=== PATIENT | male | born 2000 | race Caucasian/White ===

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

== ENCOUNTER 2021-10-07 11:02 | Day surgery (SDC) | payer BC, OTHER ==
[2021-10-06 11:09] VITALS: BMI 20.9
[~2021-10-07 11:02] MED LIST: ACETAMINOPHEN TAB 500 MG TAB PO PRN; DEXAMETHASONE SOD PHOSPHATE 4 MG/ML 1 ML VIAL IV ONE; HEPARIN SODIUM,PORCINE/PF 5,000 UNIT/0.5 ML SYRINGE SQ PRN; HYDROmorphone 0.5 MG/0.5 ML SYRINGE IVP PRN; LACTATED RINGERS 1,000 ML IV SCH; MIDAZOLAM 2 MG/2 ML VIAL IV PRN; ONDANSETRON 4 MG/2 ML VIAL IVP ONE; SCOPOLAMINE 1 MG/72 HR PATCH TRANSDERM ONE; metroNIDAZOLE-NS PMX 500 MG in SALINE 1 100ML.BAG IVPB PRN
--- NOTE | 2021-10-07 12:24 | P.GSHP ---
History of Present Illness H&P Date: 10/07/21 Chief Complaint: Pilonidal cyst 21-year-old male here for pilonidal cystectomy. Seen in the office a few months ago. Patient with 3 year history of pain and drainage at the skin opening along the pilonidal crease. Had a previous incision and drainage in the past. No surgical resection in the past however. Mild pain at times. Past Medical History Past Medical History: No Reported History History of Any Multi-Drug Resistant Organisms: None Reported Past Surgical History: No Surgical Hx Reported Past Anesthesia/Blood Transfusion Reactions: No Reported Reaction Additional Past Anesthesia/Blood Transfusion Reaction / Comment(s): Has never had anesthesia. Past Psychological History: No Psychological Hx Reported Smoking Status: Former smoker Past Alcohol Use History: Occasional Additional Past Alcohol Use History / Comment(s): Quit smoking 1 yr ago, "only smoked a couple times". Past Drug Use History: Marijuana Additional Drug Use History / Comment(s): No Marijuana use in 3 yrs. - Past Family History Mother Family Medical History: No Reported History Medications and Allergies Home Medications Medication Instructions Recorded Confirmed Type No Known Home Medications 10/06/21 10/06/21 History Allergies Allergy/AdvReac Type Severity Reaction Status Date / Time No Known Allergies Allergy Verified 10/07/21 11:14 Surgical - Exam Vital Signs Temp Pulse Resp BP Pulse Ox 97.1 F L 67 17 130/60 100 10/07/21 11:20 10/07/21 11:20 10/07/21 11:20 10/07/21 11:20 10/07/21 11:20 Physical exam: General: Well-developed, well-nourished HEENT: Normocephalic, sclerae nonicteric Abdomen: Nontender, nondistended Extremities: No edema, pilonidal region with 7 mm sinus opening with mild induration extending to the right, multiple 1 mm sinus openings, no erythema Neuro: Alert and oriented Assessment and Plan (1) Pilonidal cyst Narrative/Plan: 21-year-old male with symptomatic pilonidal cyst. We'll proceed with surgical excision at this time. At this time we plan to proceed with primary closure. Discussed with patient that depending on the intraoperative findings we may change that plan and allow for healing by secondary intention if needed. Risks were reviewed in detail with the patient. These were noted to include but not limited to bleeding, infection, scarring, recurrence, chronic inflammation, absc ess, possible need for drain placement, possible need for further surgeries. He understands and wishes to proceed. Current Visit: Yes Status: Acute Code(s): L05.91 - PILONIDAL CYST WITHOUT ABSCESS SNOMED Code(s): 46957715
[2021-10-07] MEDS ORDERED: fentaNYL (PF) 50 MCG/ML 2 ML AMP ONE (13:42)
[2021-10-07] MEDS ORDERED: MIDAZOLAM 2 MG/2 ML VIAL ONE (13:42)
[2021-10-07] MEDS ORDERED: PROPOFOL 10 MG/ML 20 ML VIAL IV ONE (13:42)
[2021-10-07] MEDS ORDERED: LIDOCAINE 2% INJ 20 MG/ML (2 ML VIAL) ONE (13:42)
[2021-10-07] MEDS ORDERED: BUPIVACAIN-EPI 0.25%-1:200,000 30 ML VIAL SQ ONE (14:29)
[2021-10-07] MEDS ORDERED: MEPERIDINE 50 MG/ML SYRINGE IVP ONE (15:00)
[2021-10-07 15:10] VITALS: TEMP 98
[2021-10-07] MEDS ORDERED: NALOXONE 0.4 MG/ML 1 ML VIAL IV PRN (15:35)
[2021-10-07] MEDS ORDERED: HYDROcodone/APAP 5-325MG 1 EACH TAB PO PRN (15:35)
[2021-10-07] MEDS ORDERED: LACTATED RINGERS 1,000 ML IV ONE (15:44)
[2021-10-07 15:59] VITALS: PULSE 62; RESP 18
[2021-10-07 16:09] VITALS: BP 123/71
--- NOTE | 2021-10-07 17:10 | P.OP ---
Date of Procedure: 10/07/21 Procedure(s) Performed: PREOPERATIVE DIAGNOSIS: Pilonidal cyst POSTOPERATIVE DIAGNOSIS: Same PROCEDURE: Pilonidal cystectomy SURGEON: Ailyn EBL: Minimal ANESTHESIA: General COMPLICATIONS: None OPERATIVE PROCEDURE: Patient was placed prone on the operating table after general anesthesia was achieved. The gluteal crease was prepped and draped in usual sterile fashion after the patient was placed in the prone jackknife position. The patient had a single prominent skin opening measuring 7-8 mm. Superior to that were 3 small 1 mm sinus openings. Mild induration was noted today to the left of midline. Skin markings were used to delineate the anticipated excision site. Lazbuddie cleft lift technique was utilized. An elliptical incision was made to the left side of the buttock encompassing the medial aspect of the left buttock skin coming around just on the right side of the skin openings. Dissection through the subcutaneous tissues took place using electrocautery. The least amount of dissection took place that was required. No tunneling was seen in the periphery. Skin flap was raised to the right approximately 3-4 cm. The wound was then irrigated fully with saline. No bleeding was seen. The subcutaneous tissues were reapproximated using interrupted 2-0 Vicryl sutures. A 10 round drain was placed above the deeper closure layer. This exited from the left side and sutured to the skin using a 3-0 silk stitch. The dermal layer was then reapproximated using interrupted 3-0 Vicryl sutures. The skin was then closed using a running 3-0 Monocryl suture. The incision was off the midline to the left by a distance of approximately 1cm. Marcaine solution plain was utilized as local anesthesia. Skin glue was used along the length of the skin closure. A sterile dressing was applied at that time. DISPOSITION: Stable to recovery room
== END 2021-10-07 17:00 | disposition home or self-care (01) ==
LOC: OR 11:02
PROVIDERS: ATTEND Surgery
DX: L05.91 Pilonidal cyst without abscess (principal); Z87.891 Personal history of nicotine dependence
CPT/HCPCS: 88304; 11771; J2250; J1100; J2175; J0690; J2405; J3010; J2704; J1170; J1644; J2001